=== PATIENT | female | born 1985 | race African-American/Black ===

== ENCOUNTER 2018-06-12 10:31 | Emergency (ER) | payer OTHER ==
[~2018-06-12] VITALS: Ht 172.7 cm; Wt 81.6 kg
[2018-06-12 10:40] VITALS: BP 133/92; Ht 172.7 cm; Wt 81.6 kg
== END 2018-06-12 11:07 | disposition home or self-care (01) ==
LOC: ED 10:31
DX: K08.89 Other specified disorders of teeth and supporting structures (principal); F17.210 Nicotine dependence, cigarettes, uncomplicated